=== PATIENT | male | born 1960 | race Caucasian/White ===

== ENCOUNTER 2018-09-12 09:22 | Emergency (ER) | payer BC ==
--- NOTE | 2018-09-12 10:41 | ED ---
General Adult HPI - General Chief complaint: Fall Stated complaint: fall, head/shoulder injury Time Seen by Provider: 09/12/18 10:00 Source: patient, RN notes reviewed, old records reviewed Mode of arrival: ambulatory Limitations: no limitations - History of Present Illness Initial comments: 58 year old male presents two days after fall. Patient has LOC with hitting left side of head after slipping on ICE. He also complains of Left arm and shoulder pain. Patient states that he felt dizzy today, and felt like the room was spinning. Patient reports swelling over left temporal bone. - Related Data Home Medications Medication Instructions Recorded Confirmed Aspirin EC [Ecotrin Low Dose] 81 mg PO DAILY 09/12/18 09/12/18 Glucosamine Sulfate 500 mg PO DAILY 09/12/18 09/12/18 Losartan Potassium 50 mg PO BID 09/12/18 09/12/18 Magdalena-3 Fatty Acids/Fish Oil [Fish 1 cap PO DAILY 09/12/18 09/12/18 Oil 1,000 mg Softgel] Pravastatin Sodium [Pravachol] 20 mg PO DAILY 09/12/18 09/12/18 amLODIPine [Norvasc] 5 mg PO DAILY 09/12/18 09/12/18 Previous Rx's Medication Instructions Recorded Acetaminophen Tab [Tylenol Tab] 500 mg PO Q6H #20 tablet 09/12/18 Meclizine [Antivert] 25 mg PO BID #20 tab 09/12/18 Ondansetron [Zofran] 4 mg PO Q8HR PRN #20 tab 09/12/18 Allergies Allergy/AdvReac Type Severity Reaction Status Date / Time codeine AdvReac Unknown Verified 09/12/18 12:00 Review of Systems ROS Statement: Those systems with pertinent positive or pertinent negative responses have been documented in the HPI. ROS Other: All systems not noted in ROS Statement are negative. Past Medical History Past Medical History: Cancer, Hyperlipidemia, Hypertension Additional Past Medical History / Comment(s): prostate cancer- prostate removed History of Any Multi-Drug Resistant Organisms: None Reported Additional Past Surgical History / Comment(s): prostate removal Past Psychological History: No Psychological Hx Reported Smoking Status: Never smoker Past Alcohol Use History: Daily Past Drug Use History: None Reported General Exam - General Exam Comments Initial Comments: Pleasant alert and oriented 58 year old male, no distress. Limitations: no limitations General appearance: alert, in no apparent distress Head exam: Present: atraumatic, normocephalic, normal inspection, other ( swelling over left temporal bone. ) Eye exam: Present: normal appearance, PERRL, EOMI. Absent: scleral icterus, conjunctival injection, periorbital swelling ENT exam: Present: normal exam, mucous membranes moist Neck exam: Present: normal inspection. Absent: tenderness, meningismus, lymphadenopathy Respiratory exam: Present: normal lung sounds bilaterally. Absent: respiratory distress, wheezes, rales, rhonchi, stridor Cardiovascular Exam: Present: regular rate, normal rhythm, normal heart sounds. Absent: systolic murmur, diastolic murmur, rubs, gallop, clicks GI/Abdominal exam: Present: soft, normal bowel sounds. Absent: distended, tenderness, guarding, rebound, rigid Extremities exam: Present: normal inspection, full ROM, normal capillary refill , other (Pain with ROM of L shoulder, evidence of AC tenderness and separation. ). Absent: tenderness, pedal edema, joint swelling, calf tenderness Back exam: Present: normal inspection Neurological exam: Present: alert, oriented X3, CN II-XII intact, normal gait, reflexes normal Expanded Patient oriented to: Present: person, place, time Speech: Present: fluid speech Cranial nerves: EOM's Intact: Normal, Facial Sensation: Normal Cerebellar function: Finger to Nose: Normal Upper motor neuron: Pronator Drift: Normal Sensory exam: Upper Extremity Light Touch: Normal, Lower Extremity Light Touch: Normal Motor strength exam: RUE: 5, LUE: 5, RLE: 5, LLE: 5 Eye Response: (4) open spontaneously Motor Response: (6) obeys commands Verbal Response: (5) oriented Marian Total: 15 Psychiatric exam: Present: normal affect, normal mood Skin exam: Present: warm, dry, intact, normal color. Absent: rash Course Vital Signs 09/12/18 09/12/18 09:30 12:09 Temperature 98 F 98.0 F Pulse Rate 68 57 L Respiratory 18 16 Rate Blood Pressure 176/76 137/85 O2 Sat by Pulse 99 100 Oximetry Medical Decision Making - Medical Decision Making 58 year old male 2 days after fall on ice, hitting head with LOC and left shoulder pain. Shoulder xray and examination consistent with AC separation. Placed in sling with ortho and PT follow up. Patient has no neurodefitis, but reports felt vertigo dizziness today likely releated to head injury. CT brain and cspine is normal. Patient given meclizine. Discussed post concussion symptoms and that patient is to follow up wiht PCP. Pt and comfortable with discharge. - Radiology Data Radiology results: report reviewed Give fracture dislocation evident cervical spine. No acute intracranial hemorrhage, mass effect or midline shift is seen. Shoulder x-ray shows acromioclavicular separation. Disposition Clinical Impression: Concussion, AC separation Disposition: HOME SELF-CARE Condition: Good Instructions (If sedation given, give patient instructions): Acromioclavicular Separation (ED), Concussion (ED) Additional Instructions: Patient advised to follow-up with orthopedic and primary care physician. Patient should return to the emergency department if any alarming signs or symptoms occur. Prescriptions: Acetaminophen Tab [Tylenol Tab] 500 mg PO Q6H #20 tablet Meclizine [Antivert] 25 mg PO BID #20 tab Ondansetron [Zofran] 4 mg PO Q8HR PRN #20 tab PRN Reason: Nausea Is patient prescribed a controlled substance at d/c from ED?: No When asked, does pt state using other controlled substances?: No Referrals: Tremaine Eaton MD [Primary Care Provider] - 1-2 days Wilbert Bell DO [Medical Doctor] - 1-2 days Time of Disposition: 12:03
--- NOTE | 2018-09-12 11:12 | XR ---
Left shoulder HISTORY: Trauma and pain 4 views of the left shoulder There is superior displacement of the distal clavicle in relation to the acromion. No evident fractur e. Bone mineralization is normal. Left lung apex as visualized is normal. IMPRESSION: Acromioclavicular separation.
[2018-09-12] MEDS ORDERED: ACETAMINOPHEN TAB 500 MG TAB PO STA (11:24)
[2018-09-12] MEDS ORDERED: MECLIZINE 12.5 MG TAB PO STA (11:24)
--- NOTE | 2018-09-12 11:35 | CT ---
EXAMINATION TYPE: CT brain emily mayen DATE OF EXAM: 09/12/2018 COMPARISON: None HISTORY: Fall CT DLP: 1328 mGycm Automated exposure control for dose reduction was used. TECHNIQUE: CT scan of the head and cervical spine are performed without contrast. FINDINGS: There is no acute intracranial hemorrhage, mass effect, or midline shift identified. The ventricles and sulci are within normal limits in size. The globes are intact and the visualized sin uses are clear. Cervical spine is visualized in its entirety from C1 through upper thoracic levels and demonstrates s atisfactory alignment without evidence of acute fracture or dislocation. Prevertebral soft tissue ap pears within normal limits. The C1-C2 articulation is unremarkable. Degenerative disc changes are pr esent, there is spondylosis especially at C4-5, C5-6 with associated loss of disc height. Multilevel foraminal encroachment. IMPRESSION: 1. There is no acute fracture or dislocation evident in the cervical spine. 2. No acute intracranial hemorrhage, mass effect, or midline shift is seen.
[2018-09-12 12:10] VITALS: BP 137/85; PULSE 57; RESP 16; TEMP 98
== END 2018-09-12 12:26 | disposition home or self-care (01) ==
LOC: EC 09:22
DX: S43.102A Unspecified dislocation of left acromioclavicular joint, initial encounter (principal); S06.0X1A Concussion with loss of consciousness of 30 minutes or less, initial encounter; E78.5 Hyperlipidemia, unspecified; I10 Essential (primary) hypertension; Z88.5 Allergy status to narcotic agent; Z79.82 Long term (current) use of aspirin; Z79.899 Other long term (current) drug therapy; Z85.46 Personal history of malignant neoplasm of prostate; Z90.79 Acquired absence of other genital organ(s); W00.0XXA Fall on same level due to ice and snow, initial encounter; Y92.89 Other specified places as the place of occurrence of the external cause
CPT/HCPCS: 70450; 72125; 99284